=== PATIENT | female | born 2000 | race African-American/Black ===

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

== ENCOUNTER 2022-01-12 11:44 | Inpatient (IN) ==
[2022-01-12] MEDS ORDERED: miSOPROStoL 200 MCG TABLET VAG PRN (12:12)
[2022-01-12] MEDS ORDERED: BUTORPHANOL 1 MG/ML VIAL IV PRN (12:12)
[2022-01-12] MEDS ORDERED: CARBOPROST TROMETHAMINE 250 MCG/ML AMP IM PRN (12:12)
[2022-01-12] MEDS ORDERED: ONDANSETRON 4 MG/2 ML VIAL IV PRN ×2 (12:12→18:55)
[2022-01-12] MEDS ORDERED: MEPERIDINE 50 MG/1 ML VIAL IV PRN (12:12)
[2022-01-12] MEDS ORDERED: diphenhydrAMINE 50 MG/1 ML VIAL IV PRN ×2 (12:25)
[2022-01-12] MEDS ORDERED: hydrOXYzine HCL 25 MG/1 ML VIAL IM PRN (12:25)
[2022-01-12] MEDS ORDERED: NALOXONE 0.4 MG/ML VIAL IV PRN (12:25)
[2022-01-12] MEDS ORDERED: ePHEDrine 50 MG/ML VIAL IV PRN (12:25)
[2022-01-12] MEDS ORDERED: LACTATED RINGERS 1,000 ML IV ONE (12:30)
[2022-01-12] MEDS ORDERED: fentaNYL 2 MCG/ROPIV 0.2% EPID 100 ML EPIDURAL SCH (12:30)
[2022-01-12] MEDS ORDERED: CITRIC ACID/SODIUM CITRATE 30 ML UDCUP PO ONE (12:30)
[2022-01-12] MEDS ORDERED: LACTATED RINGERS 1,000 ML IV SCH ×4 (12:30→19:30)
[2022-01-12] MEDS ORDERED: FAMOTIDINE 20 MG/2 ML VIAL IV ONE (12:30)
[2022-01-12] MEDS ORDERED: PROMETHAZINE 25 MG/1 ML VIAL IM ONE (12:45)
[2022-01-12 12:46] LABS: Basophils % 0.2 % (0.0-0.8); Eosinophils # 0.4 10*3/uL (0.0-0.87); Eosinophils % 3.2 % (0.00-10.9); Hematocrit 35.5 VOL% (35.7-47.0); Hemoglobin 10.6 GM/DL (12.0-16.0); Immature Granulocytes % 0.5 %; Immature Granulocytes Absolute 0.06 #; Lymphocytes # 1.9 10*3/uL (1.4-4.0); Lymphocytes % 15.7 % (21.3-54.2); Mean Corpuscular HGB Conc 29.9 GM/DL (32-36); Mean Corpuscular Volume 67.5 FL (87-102); Mean Platelet Volume 9.5 FL (9.6-12.0); Monocytes % 7.7 % (1.7-12.7); Neutrophils % 72.7 % (38.7-73.9); Platelet Count 391 T/CUMM (130-400); Red Blood Count 5.26 MC/CUMM (3.8-5.5); Red Cell Distribution Width 26.5 % (9.3-17.3); White Blood Count 12.4 T/CUMM (4-12)
[2022-01-12] MEDS: OXYTOCIN/LR 20 UNIT/1,000 ML BAG IV SCH ×2 (13:03→20:56)
[2022-01-12 15:00] LABS: Glucose,Urine (UA) Negative (Negative); Ketones,Urine Negative (Negative); Nitrite,Urine Negative (Negative); Protein,Urine Negative (Negative); RBC,Urine 3 /HPF (0-4); Squamous Epithelial Cell,Urine Occasional /HPF (0-10); Urine Appearance Clear (Clear); Urine Color Yellow (Yellow); Urine Specific Gravity 1.015 (1.001-1.035)
[2022-01-12 15:01] LABS: Bilirubin,Urine Negative (Negative); Blood, Urine Negative (Negative); Urine Urobilinogen 0.2 eU/dL (<2.0)
[2022-01-12 15:07] LABS: Barbiturates Screen,Urine Negative (Negative); Benzodiazepines Screen,Urine Negative (Negative); Cannabinoid Screen,Urine Negative (Negative); Opiate Screen,Urine Negative (Negative); Phencyclidine Screen,Urine Negative (Negative)
[2022-01-12] MEDS ORDERED: miSOPROStoL 200 MCG TABLET ONE (17:43)
[2022-01-12] MEDS ORDERED: METHYLERGONOVINE 0.2 MG/1 ML AMP ONE (17:43)
[2022-01-12] MEDS ORDERED: CARBOPROST TROMETHAMINE 250 MCG/ML AMP IM ONE (17:44)
[2022-01-12 18:46] LABS: Cord Arterial Blood HCO3 25.7 MMOL/L
[2022-01-12 18:48] LABS: Cord Venous Blood PCO2 39.8 MMHG; Cord Venous Blood PO2 36.1 MMHG
[2022-01-12] MEDS ORDERED: MAGNESIUM HYDROXIDE SUSP 30 ML UDCUP PO PRN (18:55)
[2022-01-12] MEDS ORDERED: BISACODYL 10 MG SUPP RECTAL PRN (18:55)
[2022-01-12] MEDS ORDERED: ACETAMINOPHEN 500 MG TABLET PO PRN (18:55)
[2022-01-12] MEDS ORDERED: IBUPROFEN 800 MG TABLET PO PRN (18:55)
[2022-01-12] MEDS ORDERED: BENZOCAINE 20%/MENTHOL 0.5% SPRAY 56 GM CAN TOP PRN (18:58)
[2022-01-12] MEDS: DOCUSATE SODIUM 100 MG CAPSULE PO SCH (21:59)
[2022-01-13 06:00] LABS: Basophils # 0.1 10*3/uL (0.0-0.2); Basophils % 0.3 % (0.0-0.8); Eosinophils # 0.3 10*3/uL (0.0-0.87); Eosinophils % 1.5 % (0.00-10.9); Hematocrit 29.5 VOL% (35.7-47.0); Hemoglobin 8.9 GM/DL (12.0-16.0); Immature Granulocytes % 0.5 %; Immature Granulocytes Absolute 0.08 #; Lymphocytes # 2.4 10*3/uL (1.4-4.0); Mean Corpuscular HGB Conc 30.2 GM/DL (32-36); Mean Corpuscular Volume 68.1 FL (87-102); Monocytes % 8.6 % (1.7-12.7); Neutrophils % 75.1 % (38.7-73.9); Platelet Count 329 T/CUMM (130-400); Red Blood Count 4.33 MC/CUMM (3.8-5.5); Red Cell Distribution Width 26.3 % (9.3-17.3); White Blood Count 17.2 T/CUMM (4-12)
[2022-01-13 06:33] LABS: Anisocytosis 1+; Burr Cells Few; Platelet Estimate Normal; Poikilocytosis 1+
[2022-01-13 06:34] LABS: Ovalocytes Few; Tear Drop Cells Few
[2022-01-13] MEDS: IRON (CARBONYL)/VIT C/B12/FA TABLET PO SCH (08:43)
[2022-01-13] MEDS: DOCUSATE SODIUM 100 MG CAPSULE PO SCH ×2 (08:43→19:45)
[2022-01-13] MEDS: LABETALOL 100 MG TABLET PO SCH ×3 (08:44→21:56)
[2022-01-13] MEDS ORDERED: [UNRECOGNIZED DRUG - MIXTURE] PO SCH (09:00)
[2022-01-13] MEDS ORDERED: MULTIVITAMIN (PRENATAL) TABLET PO SCH (09:00)
[2022-01-13 09:22] LABS: INR 0.9; PT Patient Result 10.3 SECS (10.5-12.0); Partial Thromboplastin Time 35.4 SECS (23.8-32.1)
[2022-01-13 09:27] LABS: Alanine Aminotransferase 10 U/L (13-56); Alkaline Phosphatase 107 U/L (45-117); Aspartate Amino Transferase 25 U/L (0-37); Bilirubin,Total < 0.39 MG/DL (0.20-1.00); Blood Urea Nitrogen 9 MG/DL (7-18); Calcium 8.8 MG/DL (8.5-10.1); Carbon Dioxide 27 MMOL/L (21-32); Estimated Glom Filtration Rate 185 ML/MIN; Glucose 116 MG/DL (74-106); Osmolality,Calculated 274.7 MOS/KG (273-304); Potassium 3.8 MMOL/L (3.5-5.1); Sodium 138 MMOL/L (136-145); Total Protein 5.7 G/DL (6.4-8.2); Uric Acid 3.9 MG/DL (2.6-6.0)
[2022-01-14 07:12] VITALS: BP 137/81
[2022-01-14] MEDS: LABETALOL 100 MG TABLET PO SCH (09:35)
[2022-01-14] MEDS: IRON (CARBONYL)/VIT C/B12/FA TABLET PO SCH (09:35)
[2022-01-14] MEDS: DOCUSATE SODIUM 100 MG CAPSULE PO SCH (09:36)
== END 2022-01-14 11:35 | disposition home or self-care (01) | DRG 560 ==
LOC: N.OBOUT 11:44 → N.LD 11:48 → N.OB 21:25
PROVIDERS: ADMIT Nurse Practitioner; ATTEND Nurse Practitioner